=== PATIENT | male | born 1970 | race Caucasian/White ===

== ENCOUNTER 2017-11-05 19:23 | Inpatient (IN) | payer SELFPAY ==
[2017-11-05 20:13] LABS: Base Excess-Venous -1.3 mmol/L (0 (+/- 2.5)); Bicarbonate (HCO3v) 22.3 mmol/L (1.0-85.0); CO2 Tension (PvCO2) 33.8 mmHg (41.0-51.0); Calcium, Ionized 0.88 mmol/L (1.12-1.32); Hemoglobin - Calc 15.4 g/dL (12.0-18.0); O2 Tension (PvO2) 182.2 mmHg (35.0-45.0); Potassium 3.5 mmol/L (3.4-4.7); T. Carbon Dioxide 23.3 mmol/L (1.0-85.0); pH (Venous) 7.428 (7.35-7.45); vO2 Saturation-calc 99.7 % (94-98)
[2017-11-05 20:33] LABS: ALT (SGPT) 84 U/L (8-55); AST (SGOT) 94 U/L (5-34); Albumin 4.1 g/dL (3.5-5.0); Alkaline Phosphatase 54 U/L (40-150); Anion Gap 21 mmol/L (10-20); BUN (Urea Nitrogen) 7 mg/dL (8.9-20.6); Bilirubin, Total 0.5 mg/dL (0.2-1.2); Calc. Creatinine Clearance 0 mL/min (70-130); Calcium 8.6 mg/dL (7.8-10.44); Carbon Dioxide 20 mmol/L (22-29); Chloride 101 mmol/L (98-107); Estimated GFR-MDRD Greater than 90; Globulin 3.1 g/dL (2.4-3.5); Glucose 235 mg/dL (70-105); Lipase 61 U/L (8-78); Phosphorus 2.2 mg/dL (2.3-4.7); Potassium 3.5 mmol/L (3.5-5.1); Protein, Total 7.2 g/dL (6.0-8.3); Sodium 138 mmol/L (136-145)
[2017-11-05] MEDS ORDERED: D5 1/2 NS w/20 mEq KCL 1,000 ML IV SCH (21:30)
--- NOTE | 2017-11-05 22:13 | PDOC.FPRHP ---
- History of Present Illness Chief Complaint: Dizziness History of Present Illness: 47 year old male with history of DM Type II, HTN, EtoH abuse, and Tobacco abuse presented initially to [facility] for glucose check because he was feeling dizzy. 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 He admits to drinking daily at least a 12 pack a day. His last drink was reportedly at 4 AM this morning. Patient has never been in DKA before. He did not complain of any nausea, vomiting, chest pain, shortness of breath, numbness, or headache. He recently started smoking again in the last several months. He smokes about a pack per week. He had quit for 5 years previously. - Allergies/Adverse Reactions Allergies Allergy/AdvReac Type Severity Reaction Status Date / Time Sulfa (Sulfonamide Allergy Verified 11/05/17 21:14 Antibiotics) - History PMHx: PSHx: FHx: Social: - Vital signs BP: [] HR: [] RR: [] Tmax: [] Pox: []% on [] Wt: [] FMR H&P: Results - Labs Result Diagrams: 11/05/17 19:59 Lab results: VBG pCO2 33.8 mmHg (41.0-51.0) L 11/05/17 20:11 VBG pO2 182.2 mmHg (35.0-45.0) H 11/05/17 20:11 Sodium 138 mmol/L (136-145) 11/05/17 19:59 Potassium 3.5 mmol/L (3.5-5.1) 11/05/17 19:59 Chloride 101 mmol/L (98-107) 11/05/17 19:59 Carbon Dioxide 20 mmol/L (22-29) L 11/05/17 19:59 BUN 7 mg/dL (8.9-20.6) L 11/05/17 19:59 Creatinine 0.81 mg/dL (0.6-1.3) 11/05/17 19:59 Glucose 235 mg/dL (70-105) H 11/05/17 19:59 Calcium 8.6 mg/dL (7.8-10.44) 11/05/17 19:59 Total Bilirubin 0.5 mg/dL (0.2-1.2) 11/05/17 19:59 AST 94 U/L (5-34) H 11/05/17 19:59 ALT 84 U/L (8-55) H 11/05/17 19:59 Alkaline Phosphatase 54 U/L (40-150) 11/05/17 19:59 Serum Total Protein 7.2 g/dL (6.0-8.3) 11/05/17 19:59 Albumin 4.1 g/dL (3.5-5.0) 11/05/17 19:59 Lipase 61 U/L (8-78) 11/05/17 19:59 FMR H&P: Upper Level - Pertinent history 47 yo M with PMHx IDDM presents as a transfer of care from [facility] for DKA. He presented to ER for cc of weakness, fatigue and lightheadedness from x1 week. He was concerned that his BG was low because he slept all day. He reports being compliant with his medications and injecting 22u toujeo daily as well as metformin 500 mg qDay. He checks his BG 2-3 times weekly and says it runs in the 180s. He also endorses drinking a 12 pack of beer daily but states he only had 2 beers this morning at 4 am. He slept the rest of the day. PMHx: T2DM, ETOH abuse, HTN, tobacco abuse, pancreatitis PSHx: Pancreatic cyst FHx: Denies Social Hx: , endorses tobacco (1ppd), alcohol and marijuana use Allergies: sulfa Medications: see Med Rec - Pertinent findings PE: Gen: awake, alert, oriented x3 HEENT: atraumatic, normocephalic, conjunctiva non-injected PULM: CTAB, breathing unlabored, symmetrical chest expansion CV: RRR, no murmurs noted, pulses 2+ throughout ABD: Soft, mild TTP , no distention, bowel sounds normoactive BACK: No CVAT EXT: No cyanosis or edema NEURO: CN grossly intact, motor strength 5/5 in all extremities, sensation grossly intact SKIN: No rash or lesion Pertinent labs: Initial BG 443 -> 382 -> 238 Na 138 K 3.5 Cl 101 CO2 18->20 BUM 7 Cr 0.81 WBC 2.8 Hgb 15.5 Hct 43.2 Plt 103 VBG 7.42/33.8/182.2 UDS + cannabinoids B-hydroxybutyrate 3.16 -> 1.59 - Plan Date/Time: 11/05/179 A/P: 47 yo M with IDDM and alcohol abuse presents as [facility] for anion-gap metabolic acidosis 2/2 DKA and alcohol intoxication 1. Anion Gap Metabolic Acidosis: Will admit to IMCU to continue DKA protocol. Once off insulin drip, will start cc diet with subcu insulin and resume home regimen with moderate SSI. Check a1c. FLP. Continue metformin. 2. HTN: Continue atenolol 3. GERD: Continue home omeprazole PPX: Lovenox and omeprazole I, Carmella William, have evaluated this patient and agree with findings/plan as outlined by intern architect resident. Pertinent changes/additions are listed here.
--- NOTE | 2017-11-05 22:58 | HP ---
DATE OF ADMISSION: 11/05/2017 TIME OF ADMISSION: 2130 hours. This is an attending history and physical for patient Tito Woods. For full history and physical det ails, please see Dr. Sylvia Ashley's history and physical. Portions of the history and physical have been repeated by myself and I am in agreement with her assessment and plan as documented. HISTORY OF PRESENT ILLNESS: In brief, this patient is a 47-year-old gentleman with a history of cont inuous alcohol abuse as well as hypertension and type 2 diabetes who presents to the emergency room a fter "not feeling well." The patient reports that over the last few days, he has been feeling more s leepy than normal and he has noticed his blood sugar not running normally. The patient reports that he does take all medications daily, including Toujeo 22 units every day. The patient otherwise denie s headache, fevers, chills, shortness of breath, chest pain, abdominal pain, nausea, vomiting, diarrh ea, skin rash. The patient reported that he presented to the ER this afternoon because he knew that sleeping more often was not his normal self. The patient originally presented to the [place] ER where he was found to be hyperglycemic to the 500 s, I believe and had an anion gap of 22 with serum bicarbonate of 18. The patient was diagnosed DKA at that time was started on insulin drip as well as IV fluids. He was then transferred to [facility] for higher level of care. PAST MEDICAL HISTORY: Hypertension, type 2 diabetes, history of pancreatitis. SOCIAL HISTORY: The patient reports that he recently started smoking again and he smokes about 1 pac k per week. The patient also endorses about a 12 pack per day alcohol use over the last many years. The patient reports his last drink was today and his blood alcohol level is consistent with that. PHYSICAL EXAMINATION: VITAL SIGNS: The patient was afebrile. Vitals were all normal. Blood pressure 130/80 at the time o f my examination. GENERAL: The patient was alert, oriented x3, in no apparent distress. He was mildly irritated while we are in the room. The rest of the patient's exam was overall benign. PERTINENT LABORATORY FINDINGS: 1. CBC: WBC 2.8, H and H 15.5 and 43, platelets 103. 2. BMP: Sodium 130, potassium 3.5, chloride 101, bicarb 20, anion gap 17, BUN 7, creatinine 0.8, gl ucose 235. 3. AST and ALT were 94 and 84. 4. Beta hydroxybutyrate was 3.6 down trending to 1.59. 5. VBG was pH of 7.42 with a pCO2 of 33, paO2 of 182. 6. Alcohol level 341. 7. Chest x-ray revealed no cardiopulmonary abnormality. ASSESSMENT AND PLAN: A 47-year-old male with history of hypertension, alcohol abuse, type 2 diabetes mellitus presenting with increased fatigue and hyperglycemia and laboratory findings consistent with diabetic ketoacidosis. 1. Mild diabetic ketoacidosis. The patient's initial blood work at the outside ER was consistent wi diabetic ketoacidosis. However, at this time, he now has a normal serum bicarbonate level and his anion gap is decreased from 20 to 17. The patient continues to be mildly hyperglycemic currently at 235. The patient will be admitted to the [facility] on diabetic ketoacidosis protocol. I anticipate that he will be able to come off of the insulin drip over the next few hours as his metabolic parameters continue to improve. I suspected a degree of his metabolic derangements are resulted alcoholic ketos is as a serum alcohol level was highly elevated upon presentation. At this time, it does not appear to be any infection source, though we will monitor closely and ensure he does not spike fever or if t here is any other cause that trigger him in diabetic ketoacidosis. I suspect it is likely due to his alcohol intoxication and likely medication noncompliance. Once the patient's metabolic parameters i mprove, we will restart him on his home Toujeo dose and escalated as necessary. Currently, there is mild transaminitis, but no evidence of renal dysfunction or acute kidney injury. 2. Alcohol intoxication. As above alcohol level elevated greater than 4 times legal limit. Fluid h ydrate and monitor for alcohol withdrawals, but the patient denies ever having issues with this in e past. 3. Hypertension. Blood pressure currently normal. We will monitor it and restarted home medication s as necessary.
[2017-11-05] MEDS ORDERED: Dextrose 50% Abboject 50 ML SYRINGE SLOW IVP PRN (23:46)
[2017-11-05] MEDS ORDERED: D5 1/2 NS w/20 mEq KCL 1,000 ML IV PRN (23:46)
[2017-11-05] MEDS ORDERED: Dextrose 5% in Water 1,000 ML IV PRN (23:46)
[2017-11-05] MEDS ORDERED: Dextrose 5 %-0.45 % NaCl 1,000 ML IV PRN ×2 (23:46→23:47)
[2017-11-05] MEDS ORDERED: NS 0.9% w/ 20 MEQ KCL 1,000 ML IV PRN ×2 (23:47)
[2017-11-05] MEDS ORDERED: Sodium Chloride 0.9% 1,000 ML IV PRN ×4 (23:47)
[2017-11-05] MEDS ORDERED: CCU Electrolyte Replacement 1 EACH IVPB ONE (23:47)
[2017-11-05] MEDS ORDERED: Ondansetron ODT 4 MG TAB PO PRN (23:47)
[2017-11-05] MEDS ORDERED: Acetaminophen 325 MG TAB PO PRN (23:47)
[2017-11-06] MEDS ORDERED: Magnesium 2 GM/NS 0.9% 100 ML 2 GM in Premix Bag 1 BAG IVPB PRN (00:15)
[2017-11-06] MEDS ORDERED: CCU ELECTROLYTE REPLACEMENT PROTOCOL FS PRN (00:15)
[2017-11-06] MEDS ORDERED: Potassium Phosphate 9 MMOL in Sodium Chloride 0.9% 100 ML IVPB PRN (00:15)
[2017-11-06] MEDS ORDERED: Potassium Chloride 40 MEQ in Sodium Chloride 0.9% 250 ML 250 ML IVPB PRN (00:15)
[2017-11-06] MEDS ORDERED: Potassium Chloride 20 MEQ TAB PO PRN (00:15)
[2017-11-06] MEDS ORDERED: Potassium Phosphate 12 MMOL in Sodium Chloride 0.9% 250 ML 250 ML IV PRN (00:15)
[2017-11-06] MEDS ORDERED: Potassium Chloride 40 MEQ in Premix Bag 1 BAG IVPB PRN (00:15)
[2017-11-06] MEDS ORDERED: Magnesium Oxide 400 MG TAB PO PRN ×2 (00:15)
[2017-11-06] MEDS ORDERED: Potassium Phosphate 15 MMOL in Sodium Chloride 0.9% 250 ML 250 ML IV PRN (00:15)
[2017-11-06 00:16] VITALS: BMI 25.4
[2017-11-06 00:39] LABS: Anion Gap 16 mmol/L (10-20); BUN (Urea Nitrogen) 6 mg/dL (8.9-20.6); Calc. Creatinine Clearance 130 mL/min (70-130); Calcium 8.3 mg/dL (7.8-10.44); Carbon Dioxide 24 mmol/L (22-29); Chloride 101 mmol/L (98-107); Estimated GFR-MDRD Greater than 90; Glucose 222 mg/dL (70-105); Potassium 3.3 mmol/L (3.5-5.1); Sodium 138 mmol/L (136-145)
[2017-11-06] MEDS ORDERED: Lorazepam 0.5 MG TAB PO SCH (00:45)
[2017-11-06] MEDS: D5 1/2 NS w/20 mEq KCL 1,000 ML IV PRN ×2 (01:46→05:14)
[2017-11-06 04:28] LABS: Hemoglobin A1c 9.7 % (4.0-6.0)
[2017-11-06 04:43] LABS: Anion Gap 15 mmol/L (10-20); BUN (Urea Nitrogen) 6 mg/dL (8.9-20.6); Calc. Creatinine Clearance 141 mL/min (70-130); Calcium 8.4 mg/dL (7.8-10.44); Carbon Dioxide 23 mmol/L (22-29); Cardiac Risk 3.5 (Less than 4.5); Chloride 102 mmol/L (98-107); Cholesterol 253 mg/dl (< 200 Desired); Estimated GFR-MDRD Greater than 90; Glucose 131 mg/dL (70-105); HDL Cholesterol 73 mg/dL (>60 Neg Risk); LDL Cholesterol, Calculated 162 mg/dL; Potassium 3.3 mmol/L (3.5-5.1); Sodium 137 mmol/L (136-145); Triglycerides 90 mg/dL (Less than 150)
[2017-11-06] MEDS ORDERED: Lorazepam 0.5 MG TAB PO PRN (05:59)
[2017-11-06] MEDS: Lorazepam 2 MG/ML VIAL SLOW IVP SCH ×3 (06:25→14:23)
[2017-11-06] MEDS ORDERED: Multivitamins, Adult 10 ML, Folic Acid 1 MG, Thiamine HCl 100 MG in Dextrose 5 %-0.45 %... IV SCH ×4 (06:30)
--- NOTE | 2017-11-06 07:23 | PDOC.FM ---
- Subjective Subjective: Patient sitting up resting comfortably this morning. He is c/o mild nausea, but has agreed to eat. He endorses mild jitteriness that has improved since ativan IV. VSS, afebrile - Objective MAR Reviewed: Yes Vital Signs & Weight: Vital Signs (12 hours) Temp Pulse Resp BP BP Pulse Ox 11/06/17 06:16 132/74 11/06/17 04:13 97.0 F L 91 19 132/74 97 11/06/17 04:00 132/74 11/06/17 00:11 124/83 11/05/17 23:33 98.3 F 70 18 124/83 95 Weight Weight 80.649 kg I&O: 11/05/17 11/06/17 11/07/17 06:59 06:59 06:59 Intake Total 1140 Output Total 900 Balance 240 Result Diagrams: 11/06/17 04:02 <Chris Argueta C - Last Filed: 11/06/17 07:24> - Objective Vital Signs & Weight: Vital Signs (12 hours) Temp Pulse Resp BP BP Pulse Ox 11/06/17 09:59 88 11/06/17 08:00 141/81 H 11/06/17 07:47 98.1 F 86 141/81 H 97 11/06/17 06:16 132/74 11/06/17 04:13 97.0 F L 91 19 132/74 97 11/06/17 04:00 132/74 11/06/17 00:11 124/83 11/05/17 23:33 98.3 F 70 18 124/83 95 Weight Weight 80.649 kg I&O: 11/05/17 11/06/17 11/07/17 06:59 06:59 06:59 Intake Total 1140 Output Total 900 Balance 240 Result Diagrams: 11/06/17 07:35 <Tej Anand - Last Filed: 11/06/17 10:45> Phys Exam - Physical Examination Constitutional: NAD HEENT: moist MMs Neck: no JVD Respiratory: no wheezing, no rales Cardiovascular: RRR, no significant murmur Gastrointestinal: soft, non-tender, no distention Musculoskeletal: no edema Psychiatric: normal affect, A&O x 3 <Chris Argueta - Last Filed: 11/06/17 07:24> Dx/Plan (1) DKA (diabetic ketoacidoses) Code(s): E13.10 - OTH DIABETES MELLITUS WITH KETOACIDOSIS WITHOUT COMA Status : Acute Plan: Gap has closed, no longer requiring insulin gtt Transition to Levemir 10u BID and PO metformin -monitor blood glucose (2) Alcohol abuse Code(s): F10.10 - ALCOHOL ABUSE, UNCOMPLICATED Status: Chronic Plan: ASE protocol Ativan scheduled 1mg IV q4h (3) Hypertension Code(s): I10 - ESSENTIAL (PRIMARY) HYPERTENSION Status: Chronic QualifierTitle: Hypertension type: essential hypertension Qualified Code( s): I10 - Essential (primary) hypertension Plan: Continue atenolol (4) GERD (gastroesophageal reflux disease) Code(s): K21.9 - GASTRO-ESOPHAGEAL REFLUX DISEASE WITHOUT ESOPHAGITIS Status: Chronic Plan: continue omeprazole (5) Tobacco abuse Code(s): Z72.0 - TOBACCO USE Status: Acute - Plan Plan: Plan: -d/c insulin gtt after levemir and breakfast -monitor for signs of EtOH withdrawal- ativan scheduled -banana bag today <Chris Argueta - Last Filed: 11/06/17 07:24> Attending Addendum - Attending Addendum Date/Time: 11/06/17 1043 I personally evaluated the patient and discussed the management with Dr. Argueta. I agree with the History, Examination, Assessment and Plan documented above with any addition or exceptions noted below. Patient improved this morning. His acid base status is near normal and gap has decreased. He will be transitioned to PO diet and SQ insulin. If sugars stable, can be transferred out of [facility] later today. My bigger concern for him is the potential for alcohol withdrawals/DT. His ASE scores have been high, and he is currently on ativan. Will increase frequency and add a PRN dose to help control symptoms. WIll need close monitoring of vitals. <Tej Anand - Last Filed: 11/06/17 10:45>
[2017-11-06] MEDS ORDERED: metFORMIN 500 MG TAB PO SCH (08:00)
[2017-11-06 08:04] LABS: Anion Gap 13 mmol/L (10-20); BUN (Urea Nitrogen) 5 mg/dL (8.9-20.6); Calc. Creatinine Clearance 129 mL/min (70-130); Calcium 8.3 mg/dL (7.8-10.44); Carbon Dioxide 25 mmol/L (22-29); Chloride 102 mmol/L (98-107); Estimated GFR-MDRD Greater than 90; Glucose 203 mg/dL (70-105); Potassium 3.9 mmol/L (3.5-5.1); Sodium 136 mmol/L (136-145)
[2017-11-06] MEDS ORDERED: HumaLOG 300 UNITS/3 ML VIAL SC PRN (08:19)
[2017-11-06] MEDS ORDERED: Dextrose 5% in Water 1,000 ML IV PRN (08:19)
[2017-11-06] MEDS ORDERED: Dextrose 50% Abboject 50 ML SYRINGE SLOW IVP PRN (08:19)
[2017-11-06] MEDS ORDERED: Insulin Detemir 100 UNITS/ML 10 UNITS in Pre-Filled Syringe 1 EACH SC SCH ×2 (09:00→21:00)
[2017-11-06] MEDS ORDERED: INSULIN GLARGINE HUM REC ANLOG 22 UNIT SQ SCH (09:00)
[2017-11-06] MEDS ORDERED: Atenolol 25 MG TAB PO SCH (09:00)
[2017-11-06] MEDS ORDERED: Lorazepam 2 MG/ML VIAL SLOW IVP PRN (09:38)
[2017-11-06 15:26] VITALS: BP 119/85; TEMP 99.3
[2017-11-06] MEDS ORDERED: Lorazepam 2 MG/ML VIAL SLOW IVP SCH (18:30)
--- NOTE | 2017-11-06 19:27 | PDOC.EVN ---
Event Note - Event Note Event Note: Patient called to ask about why he was continued to be admitted. He was admitted for DKA which had resolved but he was continuing to have issues with blood sugar and was requiring benzodiazapines for alcohol withdrawl. We discussed that although he was getting better, that these were life threatening conditions and the team that was managing his medical care throughout the day and us, his night time physicians felt the he needed further monitoring and treatment. He demonstrated clear thinking and could express back what we were saying. He did not have altered mentation. We strongly advised he stay and explained the risks. He informed us he would stay but 30 minutes later, when we were not at bedside, he decided to sign himself out against medical advice without any new prescriptions.
== END 2017-11-06 19:13 | disposition home or self-care (01) | DRG 638 ==
LOC: ERS 19:23 → IMCU/EMU 21:07
PROVIDERS: ADMIT Student in an Organized Health Care Education/Training Program; ATTEND Student in an Organized Health Care Education/Training Program
DX: E11.10 Type 2 diabetes mellitus with ketoacidosis without coma (principal); F10.239 Alcohol dependence with withdrawal, unspecified; I10 Essential (primary) hypertension; K21.9 Gastro-esophageal reflux disease without esophagitis; F17.210 Nicotine dependence, cigarettes, uncomplicated; F41.9 Anxiety disorder, unspecified; F32.9 Major depressive disorder, single episode, unspecified; Z88.2 Allergy status to sulfonamides; Z79.4 Long term (current) use of insulin; Z79.84 Long term (current) use of oral hypoglycemic drugs
CPT/HCPCS: 36415; 36416; 80048; 80061; 82010; 82330; 82803; 83036; 83690; 84100; 96365; 96366; J1815; J2060; J3411; J7042